=== PATIENT | male | born 2000 | race African-American/Black ===

== ENCOUNTER 2022-12-30 16:22 | Emergency (ER) | payer SELFPAY ==
[2022-12-30] MEDS ORDERED: CEPHALEXIN MONOHYDRATE 500 MG CAPSULE (UD) PO ONE (17:01)
[2022-12-30] MEDS ORDERED: ACETAMINOPHEN 500 MG TABLET (FP) PO ONE (17:02)
[2022-12-30 17:10] VITALS: BP 103/63; PULSE 107; RESP 18; TEMP 99.7; BMI 26.9
[2022-12-30] MEDS ORDERED: CEPHALEXIN MONOHYDRATE 500 MG CAPSULE (UD) ONE (17:10)
[2022-12-30] MEDS ORDERED: ACETAMINOPHEN 325 MG TABLET (FP) ONE (17:10)
== END 2022-12-30 18:04 | disposition home or self-care (01) ==
LOC: JER 16:22
DX: R50.9 Fever, unspecified (principal); N64.4 Mastodynia; N61.0 Mastitis without abscess
CPT/HCPCS: 99283-25